=== PATIENT | female | born 1975 | race Caucasian/White ===

== ENCOUNTER → 2018-09-17 | Outpatient (CLI) | payer OTHER ==
[2014-10-29 13:43] VITALS: BMI 24.8
[~2018-09-17] MED LIST: ACE3 PO; ASPI-1441 PO; FOLTX PO; IBU800 PO; PREN-67 PO; PROG200C7 PO
--- NOTE | 2018-09-17 16:17 | RADIOLOGY IMAGING REPORT ---
FACILITY: [facility] PATIENT NAME: CANDI OJEAD : [id number] MR: [id number] V: [id number] EXAM DATE: [id number] ORDERING PHYSICIAN: MELANI QUINTANA TECHNOLOGIST: Bijal Hager PROCEDURE:BILATERAL DIGITAL SCREENING MAMMOGRAM WITH CAD ASSISTED INTERPRETATION & 3D TOMOSYNTHESIS COMPARISON:None, baseline. INDICATIONS:SCREENING FINDINGS: The breast tissue is heterogeneously dense. In the upper outer quadrant of the Right breast there is a benign appearing lymph node kidney been in shaped adjacent to a vessel. Small benign cluster of course rime calcifications are noted in the 3 o'clock position of the Right breast. No concerning architectural distortion or suspicious microcalcifications in either breast. TECHNIQUE: BILATERAL CC & MLO 3D TOMOGRAPHIC IMAGES WERE OBTAINED. CAD WAS USED. DIAGNOSTIC CATEGORY 2--BENIGN FINDING. RECOMMENDATIONS: ROUTINE MAMMOGRAM AND CLINICAL EVALUATION IN 1 YR. IMPRESSION: BIRADS 2: Benign finding. Dictated by: Leland Meraz M.D. on 09/17/2018 at 15:44 Transcribed by: DEVEN on 09/17/2018 at 16:13 Approved by: Leland Meraz M.D. on 09/17/2018 at 16:16 [facility]
== END ==
LOC: MAMO 00:36
PROVIDERS: ATTEND Obstetrics & Gynecology
DX: Z12.31 Encounter for screening mammogram for malignant neoplasm of breast (principal)
CPT/HCPCS: 77063; 77067